=== PATIENT | male | born 2000 | race African-American/Black ===

== ENCOUNTER 2025-04-28 02:07 | Emergency (ER) | payer MEDICAID, SELFPAY ==
--- NOTE | ~2025-04-28 | CT_ITS ---
CLINICAL HISTORY: trauma CT Head without contrast. CT cervical spine without contrast. Comparison: None provided Findings: Motion artifact at the C2 and C3 vertebral body levels. CT Head: No intracranial mass, midline shift, hydrocephalus, or acute hemorrhage. No atrophy-like change or white matter disease. There is no sinus or mastoid fluid. The orbits are within normal limits. Intact skull. CT Cervical Spine: No cervical fluid collections or masses. Lung apices are clear. Slight convex left curvature. Straightening of cervical lordosis. No acute fractures or dislocations. No arthritic changes or stenotic disease. IMPRESSION: 1. No acute intracranial findings. 2. No acute cervical injury. This document has been electronically signed by: Kevon Rai MD on 04/28/2025 04:28:16
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
[2025-04-28 06:00] LABS: Hematocrit 42.5 % (42.0-52.0); Hemoglobin 14.1 g/dl (14.0-18.0); Imm Gran Abs Auto 0.03 X10*3/uL (0.00-0.03); Imm Gran Pct Auto 0.4 % (0.0-0.4); Lymphocytes Absolute Auto 1.1 X10*3/uL (1.2-4.9); MANUAL DIFF FLAG NO; Mean Corpuscular HGB Conc 33.2 g/dl (31.0-36.0); Mean Corpuscular Hemoglobin 28.1 pg (27.0-33.0); Mean Corpuscular Volume 84.8 fL (80.0-98.0); NRBC Abs Auto 0.000 X10*3/uL (0.0-0.012); NRBC Pct Auto 0.0 /100WBC (0.0-0.2); Platelet Count 228 X10*3/uL (160-400); Red Blood Count 5.01 X10*6/uL (4.60-5.80); White Blood Count 6.8 X10*3/uL (4.8-10.8)
[2025-04-28 06:17] VITALS: RESP 16
[2025-04-28 06:37] LABS: Alanine Aminotransferase 20 U/L (0-40); Albumin Level 4.2 g/dL (3.5-5.0); Alkaline Phosphatase 62 U/L (39-117); Anion Gap 13 (12-20); Aspartate Amino Transferase 38 U/L (5-37); Blood Urea Nitrogen 11 mg/dL (9-16); Calcium 8.8 mg/dL (8.4-10.2); Carbon Dioxide 23 mmol/L (22-29); Chloride 109 mmol/L (96-108); Estimated Glomerular Filt Rate > 60; Potassium 3.4 mmol/L (3.3-5.1); Sodium 142 mmol/L (135-145); Total Protein 6.9 g/dL (6.5-8.0)
[2025-04-28 07:44] LABS: HIV Num 1 0.04 S/CO (0.00-0.99); ~HepC Num1 0.10 S/CO (0.00-0.79); ~Hepatitis C Antibody Nonreactive (Nonreactive)
[2025-04-28 08:13] VITALS: BP 92/55; PULSE 58; RESP 16; TEMP 37.1; O2SAT 97
--- NOTE | 2025-04-28 10:17 | MHC.CARE ---
Pt reported that he drinks infrequently however that when he does bad things happen. He declined any detox referrals and asked for OP materials. Pt has [place] Medicaid and was provided with resources however was informed that he would have to make calls to see who would take his insurance for OP substance use. Pt was agreeable with resources.
[2025-04-28 10:22] VITALS: BP 108/52; PULSE 60; RESP 16; TEMP 36.6; O2SAT 98
[2025-04-28 10:26] VITALS: BP 108/52; PULSE 60; RESP 16; TEMP 36.6; O2SAT 98
--- NOTE | 2025-04-28 10:47 | PC.NURSE ---
Pt in stable condition for discharge. Denies SI/HI/AVH. A/ox4. Neuro intact. Belongings returned to pt. Pt ambulated off unit
== END 2025-04-28 10:50 | disposition home or self-care (01) ==
PROVIDERS: Emergency Provider Emergency Medicine
DX: S02.5XXA Fracture of tooth (traumatic), initial encounter for closed fracture (principal); S01.511A Laceration without foreign body of lip, initial encounter; S00.81XA Abrasion of other part of head, initial encounter; F10.129 Alcohol abuse with intoxication, unspecified; Y90.6 Blood alcohol level of 120-199 mg/100 ml; W19.XXXA Unspecified fall, initial encounter; Y93.9 Activity, unspecified; Y92.480 Sidewalk as the place of occurrence of the external cause; Y99.9 Unspecified external cause status
CPT/HCPCS: 12011; 36415; 70450; 72125; 80053; 80307; 85025; 86803; 87389; 99284

== ENCOUNTER → 2025-04-28 05:02 | Outpatient (BNV) | payer MEDICAID, SELFPAY | PROVIDERS: Emergency Provider Emergency Medicine; Visit Provider Radiology Diagnostic Radiology | DX: S09.90XA Unspecified injury of head, initial encounter (principal); F10.929 Alcohol use, unspecified with intoxication, unspecified | CPT/HCPCS: 70450; 72125 ==

== ENCOUNTER 2025-05-04 15:42 | Emergency (ER) | payer MEDICAID, SELFPAY ==
[2025-05-04 15:47] VITALS: BP 141/65; PULSE 82; RESP 16; TEMP 36.1; O2SAT 100; BMI 19.6
--- NOTE | 2025-05-04 15:55 | ED_ITS ---
HPI - Wound/Laceration General Chief Complaint: Wound/Laceration Stated Complaint: suture removal Time Seen by Provider: 05/04/25 15:54 Source: patient Mode of arrival: ambulatory Limitations: no limitations History of Present Illness ED Provider: FRANCY JACKSON PA-C HPI narrative: 24 year old male presents to the ED today requesting removal of his sutures. Patient was evaluated at our facility on 04/28/25 s/p fall. He was noted to have a lip laceration with 3 sutures placed. He was advised to return today for removal. He states the area has been healing well. No drainage/discharge, no redness, no issues opening/closing the jaw, fever/chills. No complaints at present. Related Data Previous Rx's ?Medication ?Instructions ?Recorded acetaminophen 500 mg capsule 1,000 mg (2 x 500 mg) PO Q8H PRN 04/28/25 fever or pain #14 caps amoxicillin 875 mg-potassium 1 tab PO BID #8 tabs 04/14 clavulanate 125 mg tablet ibuprofen 400 mg tablet 400 mg PO Q6H PRN pain #14 t abs 04/28/25 Allergies Allergy/AdvReac Type Severity Reaction Status Date / Time No Known Allergies Allergy Verified 05/04/25 15:48 Review of Systems Review of Systems: Yes all other systems are reviewed and are negative PMFSH Past Medical History Attestation statement: The following information was validated with the patient. Source: old records reviewed and nursing notes reviewed Social History Social History Advance Directives: No Advance Directives Information Provided: Yes Physical Exam Vital Signs: Vital Signs: Last Vital Signs Temp 97.0 F 05/04/25 15:47 Pulse 82 05/04/25 15:47 Resp 16 05/04/25 15:47 BP 141/65 H 05/04/25 15:47 Pulse Ox 100 05/04/25 15:47 O2 Del Method Room Air 05/04/25 15:47 BMI result Body Mass Index 19.6 hypertensive, vitals are otherwise wnl General: Well appearing, in no acute distress. Skin: Warm, dry, intact. No rashes or lesions. Head: Normocephalic, atraumatic. +well healing laceration noted to the left lateral commisure of the upper lip, [address], no dehiscence, no discharge EENT: Hearing is intact b/l. Conjunctiva clear. EOM intact. Moist mucous membranes.? Ext: Upper and lower extremities atraumatic, without tenderness, deformity, sw elling or erythema Neuro: AOx3. Normal speech. Ambulating with steady gait. Psych: Appropriate mood and affect. Responds appropriately to questions. Medical Decision Making Medical Decision Making MDM Narrative: 24 year old male presents to the ED today requesting removal of his sutures. hypertensive, vitals are otherwise wnl. he is well appearing and in NAD. on exam, well healing laceration noted to the left lateral commisure of the upper lip, [address], no dehiscence, no discharge. Differential diagnosis includes well healing laceration. unlikely cellulitis, dehiscence Plan for suture removal and discharge home. Differential Diagnosis Differential Diagnoses: The differential diagnosis associated with the presentation includes as above. Admission/Observation Not indicated External Record Review External record reviewed: Inpatient record Social Determinants Patient?s care significantly limited by Social Determinants of Health including: Other Social Determinant of Health Critical Care Time Critical Care Time Critical Care Time: No Discharge Plan Discharge Clinical Impression: Encounter for removal of sutures Patient Disposition: Home, Self-Care Instructions: Stitches Removal (ED) Additional Instructions: You have been evaluated in the Emergency Department today for suture removal.? Your sutures were removed and your wound is healing well.? You can wash the area freely now. Keep your wound out of the sunlight for six months to reduce the appearance of scarring. You should cover your scar or use high SPF sunscreen protection. Please follow up with your primary care provider at your next scheduled appointment. Return to the ER immediately signs of infection to your wounds such as worsening pain, worsening redness/swelling, discharge/pus from your wounds, or for any other concerning symptoms. Prescriptions: No Action ibuprofen 400 mg tablet 400 mg PO Q6H PRN (Reason: pain) Qty: 14 0RF acetaminophen 500 mg capsule 1,000 mg PO Q8H PRN (Reason: fever or pain) Qty: 14 0RF amoxicillin-pot clavulanate 875-125 mg tablet 1 tab PO BID Qty: 8 0RF Referrals: Physician,None [Primary Care Provider, Medical] Discharge Date/Time: 05/04/25 16:12 Print Language: Sierra Leonean
[2025-05-04 16:12] VITALS: BP 141/65; PULSE 82; RESP 16; TEMP 36.1; O2SAT 100
--- OUTSIDE RECORDS SUMMARY | 2025-05-04 19:08 | XMS_ITS | Clinical Summary ---
Author Organization [address] Address [address] [place] [id number] Care Team Providers Care Personal Protection Specialist Name Role Phone Brittnee Lynn MD Primary Care Provider [phone] Allergies No known active allergies Medications brompheniramine-ps eudoeph-DM 2-30-10 mg/5 mL syrup 10/07/2016 Activ e fluticasone (FLONASE) 50 mcg/actuation nasal spray 10/07/2016 Active Active Problems Problem Noted Date Diagnosed Date Abdominal pain, unspecified location 10/20/2016 Overview (04/20/2025): Replacement diagnosis for inactivated diagnoses after 04/20 regulatory import Leukocytosis, unspecified type 10/20/2016 Social History Tobacco Use Types Packs/Day Years Used Date Smoking Tobacco: Never Smokeless Tobacco: Never Alcohol Use Standard Drinks/Week Comments No 0 (1 standard drink = 0.6 oz pur e alcohol) Sex and Gender Information Value Date Recorded Sex Assigned at Not on file Legal Sex Male 8:51 AM EST Gender Identity Not on file Sexual Orientation Not on file Last Filed Vital Signs Vital Sign Reading Time Taken Comments Blood Pressure 134/70 12/08/2021 10:23 PM EDT Pulse 60 12/08/2021 10:23 PM EDT Temperature 36.7 C (98 F) 12/08/2021 10:23 PM EDT Respiratory Rate 18 12/08/2021 10:23 PM EDT Oxygen Saturation 100% 12/08/2021 10:23 PM EDT Inhaled Oxygen Concentration - - Weight 53.1 kg (117 lb 1 oz) 10/20/2016 1:29 AM EDT Height 174 cm (5' 8.5 ) 10/20/2016 1:29 AM EDT Body Mass Index 17.54 10/20/2016 1:29 AM EDT Plan of Treatment Health Maintenance Due Date Last Done Comments MMR Vaccines (1 of 1 - Standard series) 10/31/2003 DTaP/TDaP Vaccines (1 - Tdap) 2009 HIV screening 10/31/2015 Varicella Vaccines (1 of 2 - 13+ 2-dose series) 10/31/2015 HPV vaccine series (1 - Male 3-dose series) 2017 Meningococcal B Vaccine (1 o f 2 - Standard) 2018 Hepatitis C screening 2020 Hepatitis B vaccine series ( 1 of 3 - 19+ 3-dose series) 2021 Tetanus adult (Td q 10,TDAP once) 2022 Influenza vaccine 02/18/2025 Covid-19 vaccine series (3 - 2024- season) 2025 04/22/2021, 04/01/2021 RSV Immunization (1 - 1-dose 75+ series) 2077 HIB Vaccines Aged Out No longer eligi ble based on patient's age to complete this topic Hepatitis A Vaccines Aged Out No long er eligible based on patient's age to complete this topic IPV Vaccines Aged Out No longer eligi ble based on patient's age to complete this topic Meningococcal Vaccine Aged Out No zena mackenzie eligible based on patient's age to complete this topic Pneumococcal Vaccine (2 - 49 years) Aged Out No longer eligible b ased on patient's age to complete this topic Rotavirus Vaccines Aged Out No longer eligible based on patient's age to complete this topic Insurance [employer] [place] Advance Directives * Full ACLS (Latest Code Status on File) Date Activated Date Inactivated Comments 10/20/2016 1:27 AM 10/20/2016 3:29 PM Care Teams Personal Protection Specialist Relationship Specialty Start Date End Date Brittnee Lynn MD PCP - General Pediatrics 03/07/16
== END 2025-05-04 16:12 | disposition home or self-care (01) ==
PROVIDERS: Emergency Provider Emergency Medicine
DX: Z48.02 Encounter for removal of sutures (principal)
CPT/HCPCS: 99282